=== PATIENT | female | born 1965 | race Caucasian/White ===

== ENCOUNTER 2016-09-05 12:30 | Emergency (ER) | payer BC ==
[2016-09-05 12:41] VITALS: BP 116/70
--- NOTE | 2016-09-05 12:52 | UC ---
Complaint Female HPI - HPI Summary HPI Summary: complaint of burning with urination that started this morning increased frequency and urgency of urination denies blood in urine denies back pain, abdominal pain and fever - History Of Current Complaint Chief Complaint: UCGU Stated Complaint: URINARY COMPLAINT Time Seen by Provider: 09/05/16 12:46 Hx Obtained From: Patient Hx Last Menstrual Period: 08/30/16 - Allergies/Home Medications Allergies/Adverse Reactions: Allergies Allergy/AdvReac Type Severity Reaction Status Date / Time No Known Allergies Allergy Verified 09/05/16 12:41 PMH/Surg Hx/FS Hx/Imm Hx Previously Healthy: Yes - Surgical History Surgical History: Yes Surgery Procedure, Year, and Place: tonsilectomy, right breast cyst - Family History Known Family History: Positive: Hypertension Negative: Cardiac Disease, Diabetes - Social History Occupation: Employed Full-time Lives: With Family Alcohol Use: Weekly Alcohol Amount: 3 Substance Use Type: None Smoking Status (MU): Former Smoker Type: Cigarettes Amount Used/How Often: 1/2-1 ppd Length of Time of Smoking/Using Tobacco: 25 yrs Have You Smoked in the Last Year: No When Did the Patient Quit Smoking/Using Tobacco: 2006 - Immunization History Most Recent Influenza Vaccination: not this season Review of Systems Constitutional: Negative Skin: Negative Eyes: Negative ENT: Negative Respiratory: Negative Cardiovascular: Negative Gastrointestinal: Negative Genitourinary: Dysuria, Frequency, Urgency Motor: Negative Neurovascular: Negative Musculoskeletal: Negative Neurological: Negative Psychological: Negative All Other Systems Reviewed And Are Negative: Yes Physical Exam Triage Information Reviewed: Yes Appearance: No Pain Distress, Well-Nourished Vital Signs: Initial Vital Signs Temp 99 F 09/05/16 12:36 Pulse 71 09/05/16 12:36 Resp 16 09/05/16 12:36 BP 116/70 09/05/16 12:36 Pulse Ox 100 09/05/16 12:36 Vital Signs Reviewed: Yes Eyes: Positive: Conjunctiva Clear ENT: Positive: Pharynx normal, TMs normal. Negative: Nasal congestion Neck: Positive: No Lymphadenopathy Respiratory: Positive: Lungs clear, Normal breath sounds, No respiratory distress Cardiovascular: Positive: RRR, No Murmur, Pulses Normal Abdomen Description: Positive: Nontender, No Organomegaly, Soft. Negative: CVA Tenderness (R), CVA Tenderness (L), Distended, Guarding Bowel Sounds: Positive: Present Musculoskeletal: Positive: No Edema Neurological: Positive: Alert Psychological Exam: Normal Skin Exam: Normal Complaint Female Dx - Differential Dx/Diagnosis Differential Diagnosis/HQI/PQRI: Ureteral Stone, Urinary Tract Infection Provider Diagnoses: UTI Discharge - Discharge Plan Condition: Stable Disposition: HOME Prescriptions: Nitrofurantoin Monohyd Macro [Macrobid] 100 mg PO BID #10 cap Phenazopyridine TAB* [Pyridium TAB*] 100 mg PO TID #9 tab Patient Education Materials: Urinary Tract Infection in Women (ED) Referrals: Guillermo Blount MD [Primary Care Provider] - Additional Instructions: Start antibiotic as directed Increase fluids and rest Take acetaminophen or ibuprofen for fever or pain Please review your discharge instructions. If your symptoms do not improve please call your primary care provider or return to urgent care
== END 2016-09-05 13:06 | disposition home or self-care (01) ==
LOC: UCCORT 12:30
DX: N39.0 Urinary tract infection, site not specified (principal); Z87.891 Personal history of nicotine dependence
CPT/HCPCS: 87077; 87086; 87186; 99212; G0463

== ENCOUNTER 2017-10-22 10:20 | Emergency (ER) | payer BC ==
[2017-10-22 10:34] VITALS: BP 129/75
--- NOTE | 2017-10-22 10:56 | UC ---
Throat Pain/Nasal Arnaldo HPI - HPI Summary HPI Summary: 51 female presents to the urgent care with complaints of a head cold that she feels has moved to her chest. States she's had a lot of sinus pressure sinus congestion, nasal congestion, productive coughing, chest congestion and feeling ill for over a week. Also admits to headache. Has been taking Mucinex using saline rinses and taking Tylenol [id number] with some relief. Feels over the past couple of days her symptoms really got worse. Admits to productive cough. Denies any shortness of breath or trouble breathing. No other complaints. No past medical history. - History of Current Complaint Hx Obtained From: Patient Hx Last Menstrual Period: 08/30/16 Onset/Duration: Sudden Onset, Lasting Weeks, Still Present, Worse Since Pain Intensity: 0 Pain Scale Used: 0-10 Numeric Cough: Productive - green <Paty Bennett - Last Filed: 10/22/17 11:04> <Agnes Sharp - Last Filed: 10/22/17 11:42> - History of Current Complaint Chief Complaint: UCRespiratory Stated Complaint: COUGH Time Seen by Provider: 10/22/17 10:33 - Allergies/Home Medications Allergies/Adverse Reactions: Allergies Allergy/AdvReac Type Severity Reaction Status Date / Time No Known Allergies Allergy Verified 10/22/17 10:34 Home Medications: Home Medications Guaifen/Dextromethorphan/PE [Mucinex Fast-Max Severe C 5-10-200 mg] 1 tab PO ONCE PRN 10/22/17 [History Confirmed 10/22/17] PMH/Surg Hx/FS Hx/Imm Hx - Additional Past Medical History Additional PMH: Denies PMHx - Surgical History Surgical History: Yes Surgery Procedure, Year, and Place: tonsilectomy, right breast cyst - Family History Known Family History: Positive: Hypertension Negative: Cardiac Disease, Diabetes - Social History Alcohol Use: Occasionally Alcohol Amount: 3 Substance Use Type: None Smoking Status (MU): Former Smoker Type: Cigarettes Amount Used/How Often: 1/2-1 ppd Length of Time of Smoking/Using Tobacco: 25 yrs Have You Smoked in the Last Year: No When Did the Patient Quit Smoking/Using Tobacco: 2006 - Immunization History Most Recent Influenza Vaccination: none 2016 <Paty Bennett - Last Filed: 10/22/17 11:04> Review of Systems Constitutional: Negative Eyes: Negative ENT: Sore Throat - improved, Ear Ache, Nasal Discharge, Sinus Congestion, Sinus Pain/Tenderness Respiratory: Cough Cardiovascular: Negative Gastrointestinal: Negative Neurological: Headache All Other Systems Reviewed And Are Negative: Yes <Paty Bennett - Last Filed: 10/22/17 11:04> Physical Exam Triage Information Reviewed: Yes Appearance: Well-Appearing, No Pain Distress, Well-Nourished Vital Signs: Initial Vital Signs Temp 97.6 F 10/22/17 10:28 Pulse 58 10/22/17 10:28 Resp 16 10/22/17 10:28 BP 129/75 10/22/17 10:28 Pulse Ox 98 10/22/17 10:28 Vital Signs Reviewed: Yes Eyes: Positive: Conjunctiva Clear ENT: Positive: Hearing grossly normal, Pharyngeal erythema, Nasal congestion, TMs normal, Sinus tenderness, Uvula midline. Negative: Tonsillar swelling, Tonsillar exudate Dental: Negative: Cervical Lymphadenopathy Neck: Positive: Supple, Nontender, No Lymphadenopathy Respiratory: Positive: Chest non-tender, Lungs clear, Normal breath sounds, No respiratory distress, No accessory muscle use. Negative: Crackles, Rhonchi, Stridor, Wheezing Cardiovascular: Positive: RRR, No Murmur, Pulses Normal Bowel Sounds: Positive: Present Musculoskeletal: Positive: Strength Intact Neurological: Positive: Alert Skin Exam: Normal <Paty Bennett - Last Filed: 10/22/17 11:04> Vital Signs: Initial Vital Signs Temp 97.6 F 10/22/17 10:28 Pulse 58 10/22/17 10:28 Resp 16 10/22/17 10:28 BP 129/75 10/22/17 10:28 Pulse Ox 98 10/22/17 10:28 <Agnes Sharp - Last Filed: 10/22/17 11:42> Throat Pain/Nasal Course/Dx - Course Course Of Treatment: Appears to be suffering from a sinusitis/upper throat infection that is turning into bronchitis. Due to ongoing symptoms that are worsening we'll treat with a Z-Skip and albuterol inhaler. Continue Mucinex, fluids, increased rest, hot showers. Aware worsening signs and symptoms watch out for. Follow-up with PCP to ensure improvement. No other concerns at this time. Normal vitals and normal physical exam otherwise. - Differential Dx/Diagnosis Differential Diagnosis/HQI/PQRI: Sinusitis, URI, Other - Bronchitis Provider Diagnoses: sinusitis, bronchitis <Paty Bennett - Last Filed: 10/22/17 11:04> Discharge - Sign-Out/Discharge Documenting (check all that apply): Discharge - Billing Disposition and Condition Condition: GOOD Disposition: HOME <Paty Bennett - Last Filed: 10/22/17 11:04> - Billing Disposition and Condition Condition: GOOD Disposition: HOME <Agnes Sharp - Last Filed: 10/22/17 11:42> - Discharge Plan Condition: Good Disposition: HOME Prescriptions: Albuterol HFA INHALER* [Ventolin HFA Inhaler*] 1 puff INH Q6H PRN #1 mdi PRN Reason: Sob/Wheezing Azithromycin TAB* [Zithromax TAB (Z-SKIP) 250 mg #6 tabs] 2 tab PO .TODAY, THEN 1 DAILY #1 skip Patient Education Materials: Sinusitis (ED), Acute Bronchitis (ED) Referrals: Guillermo Blount MD [Primary Care Provider] - Additional Instructions: Take prescribed medication as directed until entire dose is finished. Increase fluid intake and get plenty of rest. Continue taking Mucinex and using saline rinses. Inhaler to help with chest congestion/wheezing. Hot showers and warm compresses. Follow up with PCP to ensure improvement in ~5 days. Any new or worsening symptoms please seek medical attention, as discussed. Attestation Statement User Type: Provider - I was available for consult. This patient was seen by the BENEDICT. The patient was not presented to, seen by, or examined by me. -Silver <Agnes Sharp - Last Filed: 10/22/17 11:42>
== END 2017-10-22 11:04 | disposition home or self-care (01) ==
LOC: UCCORT 10:20
DX: J32.9 Chronic sinusitis, unspecified (principal); J40 Bronchitis, not specified as acute or chronic; Z87.891 Personal history of nicotine dependence
CPT/HCPCS: 99212; G0463

== ENCOUNTER 2018-01-06 17:31 | Emergency (ER) | payer BC ==
[2018-01-06 17:53] VITALS: BP 129/72
--- NOTE | 2018-01-06 18:14 | UC ---
Respiratory Complaint HPI - HPI Summary HPI Summary: Pt c/o sudden onset of cough that began this morning. Pt is concerned that she has bronchitis. wants to "nip it before it gets out of control" Denies fever, chills or generalized malaise. Pt has seasonal allergies but does not take antihistamine. Has c/o nasal congestion, cough, sneezing and "burning" chest. - History of Current Complaint Chief Complaint: UCRespiratory Stated Complaint: COUGH Time Seen by Provider: 01/06/18 17:45 Hx Obtained From: Patient Hx Last Menstrual Period: 08/30/16 ?: No Onset/Duration: Sudden Onset Timing: Intermittent Episodes Severity Initially: Mild Severity Currently: Mild Pain Intensity: 0 Character: Cough: Nonproductive Aggravating Factors: Exertion, Deep Breaths Associated Signs And Symptoms: Positive: URI, Nasal Congestion Related History: Seasonal Allergies - untreated - Risk Factors Pulmonary Embolism Risk Factors: Smoking Cardiac Risk Factors: Smoking Tuberculosis Risk Factors: Smoking - Allergies/Home Medications Allergies/Adverse Reactions: Allergies Allergy/AdvReac Type Severity Reaction Status Date / Time No Known Allergies Allergy Verified 01/06/18 17:54 Home Medications: Home Medications Acetaminophen [Acetaminophen ER] 1,000 mg PO DAILY 01/06/18 [History Confirmed 01/06/18] PMH/Surg Hx/FS Hx/Imm Hx Previously Healthy: Yes - Surgical History Surgical History: Yes Surgery Procedure, Year, and Place: tonsilectomy, right breast cyst - Family History Known Family History: Positive: Hypertension Negative: Cardiac Disease, Diabetes - Social History Occupation: Employed Full-time Lives: With Family Alcohol Use: Occasionally Alcohol Amount: 3 Substance Use Type: None Smoking Status (MU): Light Every Day Tobacco Smoker Type: Cigarettes Amount Used/How Often: 1/2-1 ppd Length of Time of Smoking/Using Tobacco: 25 yrs Have You Smoked in the Last Year: No When Did the Patient Quit Smoking/Using Tobacco: 2006 - Immunization History Most Recent Influenza Vaccination: none 2016 Review of Systems Constitutional: Negative Skin: Negative Eyes: Negative ENT: Negative Respiratory: Cough Cardiovascular: Negative Gastrointestinal: Negative Genitourinary: Negative Motor: Negative Neurovascular: Negative Musculoskeletal: Negative Neurological: Negative Psychological: Negative Is Patient Immunocompromised?: No All Other Systems Reviewed And Are Negative: Yes Physical Exam Triage Information Reviewed: Yes Appearance: Well-Appearing Vital Signs: Initial Vital Signs Temp 98 F 01/06/18 17:50 Pulse 93 01/06/18 17:50 Resp 18 01/06/18 17:50 BP 129/72 01/06/18 17:50 Pulse Ox 99 01/06/18 17:50 Vital Signs Reviewed: Yes Eye Exam: Normal ENT: Positive: Nasal congestion, TM bulging - bilateral Dental Exam: Normal Neck exam: Normal Respiratory Exam: Normal Cardiovascular Exam: Normal Musculoskeletal Exam: Normal Neurological Exam: Normal Psychological Exam: Normal Skin Exam: Normal UC Diagnostic Evaluation - Laboratory O2 Sat by Pulse Oximetry: 99 Respiratory Course/Dx - Course Course Of Treatment: pt requested antibiotics as she stated she thinks she has bronchitis. Despite trying to redirect the pt regarding viral diseases,cough, bronchitis and that antibiotics would not be appropriate the pt repeated that she had bronchitis and needed to get better with antibiotics. - Differential Dx/Diagnosis Differential Diagnosis/HQI/PQRI: Bronchitis, Other - viral syndrome Provider Diagnoses: cough Discharge - Sign-Out/Discharge Documenting (check all that apply): Discharge/Admit/Transfer - Discharge Plan Condition: Stable Disposition: HOME Prescriptions: Azithromycin TAB* [Zithromax TAB (Z-SOLO) 250 mg #6 tabs] 2 tab PO .TODAY, THEN 1 DAILY #1 solo Benzonatate CAP* [Tessalon 100 MG CAP*] 100 mg PO Q8H PRN #15 cap PRN Reason: Cough predniSONE TAB* [Deltasone 20 MG TAB*] 20 mg PO DAILY #4 tab Patient Education Materials: Acute Cough (ED) Referrals: Alejandra JIMENEZ,Lilly Aponte [Primary Care Provider] - If Needed - Billing Disposition and Condition Condition: STABLE Disposition: Home
== END 2018-01-06 18:10 | disposition home or self-care (01) ==
LOC: UCCORT 17:31
DX: R05 Cough (principal); F17.210 Nicotine dependence, cigarettes, uncomplicated
CPT/HCPCS: 99212; G0463

== ENCOUNTER 2018-08-04 08:35 | Emergency (ER) | payer BC, OTHER ==
[2018-08-04 08:53] VITALS: BP 118/67
--- NOTE | 2018-08-04 12:48 | UC ---
Complaint Female HPI - HPI Summary HPI Summary: Patient has had dysuria and increased frequency of urination over the past 24 hours. - History Of Current Complaint Chief Complaint: UCGU Stated Complaint: URINARY Time Seen by Provider: 08/04/18 09:05 Hx Obtained From: Patient Hx Last Menstrual Period: 08/30/16 Onset/Duration: Sudden Onset, Lasting Days - 1 Timing: Constant Severity Initially: Mild Severity Currently: Mild Pain Intensity: 0 Character: Burning Aggravating Factor(s): Urination - Allergies/Home Medications Allergies/Adverse Reactions: Allergies Allergy/AdvReac Type Severity Reaction Status Date / Time No Known Allergies Allergy Verified 08/04/18 08:48 PMH/Surg Hx/FS Hx/Imm Hx Previously Healthy: Yes - Surgical History Surgical History: Yes Surgery Procedure, Year, and Place: tonsilectomy, right breast cyst - Family History Known Family History: Positive: Hypertension Negative: Cardiac Disease, Diabetes - Social History Alcohol Use: Occasionally Alcohol Amount: 3 Substance Use Type: None Smoking Status (MU): Former Smoker Type: Cigarettes Amount Used/How Often: 1/2-1 ppd Length of Time of Smoking/Using Tobacco: 25 yrs Have You Smoked in the Last Year: No When Did the Patient Quit Smoking/Using Tobacco: 2006 - Immunization History Most Recent Influenza Vaccination: none 2016 Review of Systems All Other Systems Reviewed And Are Negative: Yes Constitutional: Positive: Negative Skin: Positive: Negative Eyes: Positive: Negative ENT: Positive: Negative Respiratory: Positive: Negative Cardiovascular: Positive: Negative Gastrointestinal: Positive: Negative Genitourinary: Positive: Dysuria, Frequency, Urgency Motor: Positive: Negative Neurovascular: Positive: Negative Musculoskeletal: Positive: Negative Neurological: Positive: Negative Psychological: Positive: Negative Is Patient Immunocompromised?: No Physical Exam Triage Information Reviewed: Yes Appearance: Well-Appearing, Well-Nourished, Pain Distress Vital Signs: Initial Vital Signs Temp 97.6 F 08/04/18 08:49 Pulse 71 08/04/18 08:49 Resp 16 08/04/18 08:49 BP 118/67 08/04/18 08:49 Pulse Ox 98 08/04/18 08:49 Vital Signs Reviewed: Yes Eye Exam: Normal ENT Exam: Normal Dental Exam: Normal Neck exam: Normal Respiratory Exam: Normal Cardiovascular Exam: Normal Abdominal Exam: Normal Musculoskeletal Exam: Normal Neurological Exam: Normal Psychological Exam: Normal Skin Exam: Normal Complaint Female Dx - Course Course Of Treatment: hx obtained, exam performed ,meds reviewed, UA positive and treated for UTI, culture sent - Differential Dx/Diagnosis Differential Diagnosis/HQI/PQRI: Urinary Tract Infection Provider Diagnosis: UTI (urinary tract infection) Discharge - Sign-Out/Discharge Documenting (check all that apply): Patient Departure All imaging exams completed and their final reports reviewed: No Studies - Discharge Plan Condition: Stable Disposition: HOME Patient Education Materials: Urinary Tract Infection in Women (ED) Referrals: Alejandra JIMENEZ,Lilly Aponte [Primary Care Provider] - Additional Instructions: 1. Take the medication as prescribed. 2 .INcrease clear fluid intake and get plenty of rest 3. FOllow up as needed. - Billing Disposition and Condition Condition: STABLE Disposition: Home
== END 2018-08-04 09:29 | disposition home or self-care (01) ==
LOC: UCCORT 08:35
DX: N39.0 Urinary tract infection, site not specified (principal); Z87.891 Personal history of nicotine dependence
CPT/HCPCS: 81003; 87086; 99212; G0463

== ENCOUNTER 2019-04-22 14:06 | Emergency (ER) | payer OTHER ==
--- OUTSIDE RECORDS SUMMARY | 2019-04-22 14:22 | XMS REPORT | Continuity of Care Document ---
:1965 External Reference #:[id number] Author Name Lilly Roberts MD Address [address] [place] [id number] Care Team Providers Name Role Phone Lilly Roberts MD - Family Medicine Care Team Information Patch Washer [phone] Problems Active Problems Provider Date Benign paroxysmal positional vertigo Carla Sharp MD Onset: 05/25/2011 Tubular adenoma Lilly Roberts MD Onset: 09/05/2018 Social History Type Date Description Comments Sex Unknown Tobacco Use Start: Unknown End: Former Cigarette Smoker STOPPED 2005 AT AGE Unknown 5-10 Cigarettes Daily 40, restart 2015 to 12/2017 but very light 2 cigs a day Cigarette Use Pack Years - 20 ETOH Use Occasionally consumes 4 drinks/mo alcohol Recreational Drug Use Denies Drug Use Exercise Type/Frequency Exercises regularly Allergies, Adverse Reactions, Alerts Active Allergies Reaction Severity Comments Date Sulfa Drugs Rash, Puffy Face 01/20/2009 Inactive Allergies NKDA 08/20/2007 Medications Active Medications SIG Qnty Indications Ordering Provider Date Fluticasone Propionate 2 sprays each Lilly Roberts, 02/23/2018 nostril every day 50mcg/Act Suspension Calcium Magnesium 750 Lilly Roberts, 02/23/2018 300-300mg Tablets Medications Administered in Office Medication SIG Qnty Indications Ordering Provider Date PPD Nurse Schedule Loc 8 02/23/2009 Injection PPD Herminia Landers PA 06/29/2006 Injection Immunizations CPT Code Status Date Vaccine Lot # [id number] Given 04/12/2019 Influenza Vac, Quadrivalent, Split, 0.5mL Dosage, [id number] Im Use [id number] Given 04/19/2018 Influenza Vac, Quadrivalent, Split, 0.5mL Dosage, [id number] Im Use 93831 Given 02/23/2018 Tdap (Adacel) Ages 7 And Above Only [id number] 67934 Given 05/17/2010 Afluria Or Fluvirin Flu Vac Intramuscular [id number] 26399 Given 05/02/2009 Afluria Or Fluvirin Flu Vac Intramuscular [id number] [id number] Given 04/06/2009 Hepatitis B Vaccine Adult Dosage 60835 Given 02/23/2009 Hepatitis B Vaccine Adult Dosage 88618 Given 02/23/2009 Hepatitis B Vac Ped/Adolescent 3 Dose Schedule 67906 Given 03/22/2005 Immunization Td 7 Yrs Or Older [id number] Vital Signs Date Vital Result Comment 04/12/2019 2:17pm Body Temperature 98.0 F Weight 174.00 lb Heart Rate 64 /min BP Systolic 114 mmHg BP Diastolic 78 mmHg Height 62.5 inches 5'2.50" BMI (Body Mass Index) 31.3 kg/m2 09/26/2018 10:08am Body Temperature 100.9 F Weight 187.00 lb Heart Rate 72 /min BP Systolic 114 mmHg BP Diastolic 62 mmHg Results Test Date Facility Test Result H/L Range Note Basic (BMP) 04/05/2019 [facility] Sodium 140 mmol/L 135-146 1 Potassium 4.4 mmol/L 3.5-5.2 Chloride# 103 mmol/L 97-110 2 Carbon Dioxide 27 mmol/L 24-34 Glucose 77 mg/dL 70-105 BUN 14 mg/dL 6-26 Creatinine 0.9 mg/dL 0.5-1.4 Calcium 9.4 mg/dL 8.5-10.5 3 Female Egfr 70 >60 4 Male Egfr 94 >60 5 Anion Gap 10 mmol/L 5-15 6 Lipid 04/05/2019 [facility] Cholesterol 202 mg/dL High 50-199 Triglycerides 76 mg/dL 30-200 HDL 66 mg/dL 35-85 7 Chol/ HDL Ratio 3.0 ratio Low 3.7-5.6 VLDL 15 mg/dL 2-29 LDL (Calc) 120 mg/dL High 20-99 8 Laboratory test finding 04/05/2019 [facility] TSH 0.47 uIU/mL 0.35-4.94 Free T4 0.95 ng/dL 0.70-1.48 1 Updated reference range on new analyzer 2 Updated reference range on new analyzer 3 Updated reference range 11-21-2018 4 Concerning GFR Guidelines for Americans: Normal function or mild renal disease, if clinically at risk: >/= 60 mL/min Moderately decreased: 30-59 Severely decreased: 15-29 Renal failure: <15 There is reduced accuracy above 60ml/min/1.73 m squared, but the numeric value may be clinically useful in the near 60 range 5 Concerning GFR Guidelines: Normal function or mild renal disease, if clinically at risk: >/= 60 mL/min Moderately decreased: 30-59 Severely decreased: 15-29 Renal failure: <15 There is reduced accuracy above 60ml/min/1.73 m squared, but the numeric value may be clinically useful in the near 60 range Glomerular Filtration Rate (GFR) is estimated based on the CKD-EPI equation, which assumes a steady state for creatinine as recommended by the National Kidney Disease Education Program in conjunction with the National Institutes of Health and the National Kidney Foundation. Clinical conditions in which it may be necessary to measure GFR by using clearance methods include extremes of age and body size, severe malnutrition or obesity, diseases of skeletal muscle, paraplegia or quadriplegia, vegetarian diet, rapidly changing kidney function, and calculation of the dose of potentially toxic drugs that are excreted by the kidneys. 6 Updated Reference Range 7 Per NCEP ATP III Guidelines: Results lower than 40 mg/dL are suggestive of increased risk for coronary artery disease. Results > or = to 60 mg/dL are considered a negative risk factor. 8 Per NCEP ATP III Guidelines: Normal Population <130 Patients with medical conditions: CHD/DM Optimal: <100 Borderline high: 130-159 High: 160-189 Very high: >189 Procedures Date Code Description Status 08/29/2018 17206041 Colonoscopy Completed 06/30/2018 98873031 Mammogram Completed 01/07/2014 [id number] Mammogram Completed Medical Devices Description No Information Available Encounters Description No Information Available Assessments Date Code Description Provider 04/12/2019 Z00.00 Encounter for general adult medical Lilly Roberts MD examination without abnormal findings 04/12/2019 Z86.010 Personal history of colonic polyps Lilly Roberts MD 04/12/2019 E66.9 Obesity, unspecified Lilly Roberts MD 04/12/2019 Z23 Encounter for immunization Lilly Roberts MD 04/12/2019 Z13.31 Encounter for screening for depression Lilly Roberts MD 04/12/2019 Z68.31 Body mass index (BMI) 31.0-31.9, adult Lilly Roberts MD 04/05/2019 R94.6 Abnormal results of thyroid function Lilly Roberts MD studies 04/05/2019 R94.6 Abnormal results of thyroid function Nurse's Schedule Loc 7 studies 04/05/2019 Z00.00 Encounter for general adult medical Lilly Roberts MD examination without abnormal findings 04/05/2019 Z00.00 Encounter for general adult medical Nurse's Schedule Loc 7 examination without abnormal findings 04/05/2019 Z13.220 Encounter for screening for lipoid Lilly Roberts MD disorders 04/05/2019 Z13.220 Encounter for screening for lipoid Nurse's Schedule Loc 7 disorders 04/05/2019 R94.6 Abnormal results of thyroid function [facility] studies 04/05/2019 Z00.00 Encntr for general adult medical exam w/o [facility] abnormal findings 04/05/2019 Z13.220 Encounter for screening for lipoid [facility] disorders Plan of Treatment No Information Available Functional Status Functional Condition Comment Date Status Negative for GLASSES Inactive Mental Status Description No Information Available Referrals Description No Information Available
[2019-04-22 15:20] VITALS: BP 120/72
[2019-04-22] MEDS ORDERED: Acetaminophen TAB* 325 MG PO ONE (15:24)
--- NOTE | 2019-04-22 15:29 | UC ---
Complaint Female HPI - HPI Summary HPI Summary: 53-year-old woman comes in with a chief complaint of burning with urination urinary urgency urinary frequency of started several hours ago this morning. Patient has had UTIs before and she reports this is what it feels like. Patient has had upper respiratory tract infection symptoms for several days. She is having some chills. Her low back was bothering her yesterday. Denies any abdominal pain. - History Of Current Complaint Chief Complaint: UCGU Stated Complaint: URINARY Time Seen by Provider: 04/22/19 15:23 Hx Last Menstrual Period: 3 wks ago Pain Intensity: 7 - Allergies/Home Medications Allergies/Adverse Reactions: Allergies Allergy/AdvReac Type Severity Reaction Status Date / Time No Known Allergies Allergy Verified 04/22/19 15:13 PMH/Surg Hx/FS Hx/Imm Hx Previously Healthy: Yes - Surgical History Surgical History: Yes Surgery Procedure, Year, and Place: tonsilectomy, right breast cyst - Family History Known Family History: Positive: Hypertension Negative: Cardiac Disease, Diabetes - Social History Alcohol Use: Weekly Alcohol Amount: 3 Substance Use Type: None Smoking Status (MU): Former Smoker Type: Cigarettes Amount Used/How Often: 1/2-1 ppd Length of Time of Smoking/Using Tobacco: 25 yrs Have You Smoked in the Last Year: No When Did the Patient Quit Smoking/Using Tobacco: 2006 - Immunization History Most Recent Influenza Vaccination: none 2016 Review of Systems All Other Systems Reviewed And Are Negative: Yes Constitutional: Positive: Chills, Other - SEE HPI Skin: Positive: Negative Eyes: Positive: Negative ENT: Positive: Nasal Discharge, Sinus Congestion Respiratory: Positive: Negative Cardiovascular: Positive: Negative Gastrointestinal: Positive: Negative Genitourinary: Positive: Dysuria, Frequency, Urgency Motor: Positive: Negative Neurovascular: Positive: Negative Musculoskeletal: Positive: Other: - SEE HPI Neurological: Positive: Negative Psychological: Positive: Negative Is Patient Immunocompromised?: No Physical Exam Triage Information Reviewed: Yes Appearance: No Pain Distress, Well-Nourished, Ill-Appearing - MILD Vital Signs: Initial Vital Signs Temp 99.1 F 04/22/19 15:14 Pulse 78 04/22/19 15:14 Resp 15 04/22/19 15:14 BP 120/72 04/22/19 15:14 Pulse Ox 100 04/22/19 15:14 Vital Signs Reviewed: Yes Eye Exam: Normal Eyes: Positive: Conjunctiva Clear Neck: Positive: Supple Respiratory: Positive: Lungs clear, Normal breath sounds, No respiratory distress Cardiovascular: Positive: RRR Abdomen Description: Positive: Nontender, Soft. Negative: CVA Tenderness (R), CVA Tenderness (L) Musculoskeletal: Positive: Strength Intact, ROM Intact Neurological: Positive: Alert Psychological: Positive: Age Appropriate Behavior Skin Exam: Normal Complaint Female Dx - Differential Dx/Diagnosis Provider Diagnosis: UTI (urinary tract infection) Discharge ED - Sign-Out/Discharge Documenting (check all that apply): Patient Departure All imaging exams completed and their final reports reviewed: No Studies - Discharge Plan Condition: Stable Disposition: HOME Prescriptions: Nitrofurantoin Monohyd/M-Cryst [Macrobid 100 mg Capsule] 100 mg PO BID #14 cap Phenazopyridine 200 mg (NF) [Pyridium 200 MG tab *] 200 mg PO TID PRN #9 tab PRN Reason: Pain - Moderate Patient Education Materials: Urinary Tract Infection in Women (ED) Referrals: Alejandra JIMENEZ,Lilly Aponte [Primary Care Provider] - Additional Instructions: FOLLOW UP WITH YOUR DOCTOR IF NOT COMPLETELY IMPROVED. GO TO THE EMERGENCY DEPARTMENT IF WORSE; FEVER, YOU FEEL ILL OR ANY QUESTIONS OR CONCERNS. - Billing Disposition and Condition Condition: STABLE Disposition: Home
[2019-04-22] MEDS ORDERED: Phenazopyridine TAB* 100 MG PO ONE (15:35)
== END 2019-04-22 15:40 | disposition home or self-care (01) ==
LOC: UCCORT 14:06
DX: N39.0 Urinary tract infection, site not specified (principal); Z87.891 Personal history of nicotine dependence
CPT/HCPCS: 81003; 87077; 87086; 87186; 99212; A9270-GY; G0463